=== PATIENT | male | born 1960 | race Caucasian/White ===

== ENCOUNTER 2019-10-27 16:23 | Emergency (ER) | payer OTHER ==
[~2019-10-27] VITALS: Ht 180.3 cm; Wt 90.7 kg
[2019-10-27] MEDS ORDERED: CHILDREN'S ZYRT10 M1 PO (16:30)
[2019-10-27] MEDS ORDERED: ASA81BEC PO (16:30)
[2019-10-27] MEDS ORDERED: LIPITOR40 MG PO (16:30)
[2019-10-27] MEDS ORDERED: FLOMAX0.4 MG PO (16:31)
[2019-10-27] MEDS ORDERED: PATADAY2.5 ML OPHTHALMIC (16:31)
[2019-10-27] MEDS ORDERED: ANUSOL-HC25 MG RECTAL (16:31)
[2019-10-27] MEDS ORDERED: KENALOG-1010 MG/ML IMPLANT (16:32)
[2019-10-27] MEDS ORDERED: NASACORT10.8 ML NARES (16:32)
[2019-10-27] MEDS ORDERED: KEFLEX500 M1 PO (17:29)
[2019-10-27 17:57] VITALS: BP 131/78
== END 2019-10-27 17:59 | disposition home or self-care (01) ==
LOC: M.ERS 16:23
DX: S81.811A Laceration without foreign body, right lower leg, initial encounter (principal); W26.8XXA Contact with other sharp object(s), not elsewhere classified, initial encounter; Y93.89 Activity, other specified; Y92.89 Other specified places as the place of occurrence of the external cause; Y99.8 Other external cause status